=== PATIENT | female | born 1970 | race Caucasian/White ===

== ENCOUNTER → 2019-10-15 | Day surgery (SDC) | payer OTHER ==
[2019-10-12 12:26] LABS: BLOOD UREA NITROGEN 10 mg/dL (7-26); BUN/CREATININE RATIO 16 (6-25); CALCIUM 9.8 mg/dL (8.4-10.2); CARBON DIOXIDE 24 mmol/L (22-29); CHLORIDE 104 mmol/L (98-107); CREATININE, SERUM 0.63 mg/dL (0.57-1.11); EST GLOMERULAR FILTRATION RATE > 60 ML/MIN (60-); GLUCOSE 134 mg/dL (74-118); SODIUM 137 mmol/L (136-145)
[~2019-10-15] MED LIST: ACETAMINOPHEN 1000 MG/100 ML IV ONE; AMARYL4 MG PO; ATORVASTATIN CA10 MG PO; BUPIVACAINE HCL 0.5% INJ 30 ML VIAL INJ ONE; CLINDAMYCIN PHOS 900MG/ 50ML 50 ML IV ONE; DESFLURANE 240 ML BTL INH ONE; DEXAMETHASONE SOD PHOS INJ 4 MG/ML VIAL ONE; FENTANYL CITRATE/PF 100MCG/2 ML INJ ONE; GLYCOPYRROLATE INJ 0.2 MG/ML VIAL ONE; KETOROLAC TROMETHAMINE 30 MG/ML VIAL ONE; LIDOCAINE HCL 2% LOCAL INJ 5 ML SDV VIAL INJ ONE; METFORMIN HCL500 MG PO; MIDAZOLAM HCL 2 MG/2 ML VIAL ONE; MULTI-VITAMIN1 EACH PO; NEOSTIGMINE 1 MG/ML 10ML VIAL ONE; NEXIUM PO; ONDANSETRON HCL INJ 2MG/ML 2ML 2 MG/ML VIAL ONE; PROPOFOL IV EMULSION 10 MG/ML 20 ML VIAL ONE; ROCURONIUM BROMIDE 10 MG/ML 5ML VIAL ONE; VICTOZA 2-0.6 MG/0.1 SC
[2019-10-15 09:10] VITALS: BP 125/77
--- NOTE | 2019-10-15 12:30 | Operative Report ---
DATE OF PROCEDURE: 10/15/2019 SURGEON: Maikel Puckett DPM Operative report for Dr. Simms. PREOPERATIVE DIAGNOSIS: Left Achilles tendon rupture. POSTOPERATIVE DIAGNOSIS: Left Achilles tendon rupture. PLANNED PROCEDURE: Left Achilles tendon repair. POWDER LINE REPAIRER: Maikel Puckett DPM ANESTHESIA: General with a postoperative block consisting of 20 mL of 0.5% Marcaine plain. ESTIMATED BLOOD LOSS: Less than 10 mL. MATERIALS: 0 Ethibond, 3-0 Vicryl, 3-0 nylon. PATHOLOGY: None. PROCEDURE NOTE: The patient was seen in the preoperative waiting room where the correct procedure and site were identified. The patient was brought to the operating room where general anesthesia was initiated at this time, and a well-padded pneumatic tourniquet was placed about the patient's left thigh. The left foot, ankle, and leg were then scrubbed, prepped, and draped in the usual aseptic manner. The patient was flipped to the prone position onto the operating table. By utilizing an Esmarch bandage, the left lower extremity was exsanguinated and the left thigh tourniquet was inflated to 350 mmHg for a total time of approximately 40 minutes. Attention was directed to the posterior aspect of the patient's left Achilles tendon insertion site where an 8 cm linear incision made directly over the distal aspect of the Achilles tendon to the level of the insertion. Incision was carried through the subcutaneous tissue them from deep or underlying structures. All vital neurovascular structures were identified, retracted medially and laterally and all bleeders were cauterized or ligated as deemed necessary. At this time, the peritoneum was noted inside. There was noted to be large hematoma formation. The Achilles tendon rupture site was easily identified. There was noted to be moderate spaghetti string appearance of the proximal edge of the rupture site. There was noted to be moderate hematoma formation. The plantaris muscle appeared to be intact. The wound was then copiously irrigated with sterile saline. The wound was debrided of all necrotic and devitalized tissues and spaghetti string attachments were removed. Next, utilizing a Krackow technique, the proximal rupture site was sutured, followed by the distal side in the same Krackow technique and reapproximated by suturing both ends together. Next, simple interrupted sutures were placed directly along the rupture site for further strength. The wound was again copiously irrigated with sterile saline. Capsule, deep tissue and paratenon were reapproximated with 3-0 Vicryl, subcutaneous tissue with 3-0 Vicryl, and the skin was closed using simple interrupted sutures with 3-0 nylon. The incision site was then dressed with Adaptic, 4x4s, Kerlix, Webril, 4 x 30 posterior splint, 4 inch Narendra wrap, and a 6-inch Narendra wrap. The patient tolerated the procedure and anesthesia well. The patient was transferred to the postoperative recovery room with vital signs stable and vascular status intact. The patient was monitored there for a short period time before being sent home with the following written and oral instructions: 1. Keep the dressing clean, dry, and intact. 2. The patient is to remain nonweightbearing to the left lower extremity to avoid any ambulation until being seen in the office. 3. The patient was given the office number and instructed to contact us if any problems arise. LENORA Osuna/SHONDA /[id number]
== END | disposition home or self-care (01) ==
LOC: OR 05:30
PROVIDERS: ATTEND Podiatrist Foot & Ankle Surgery
DX: S86.012A Strain of left Achilles tendon, initial encounter (principal); Z88.2 Allergy status to sulfonamides; Z88.8 Allergy status to other drugs, medicaments and biological substances; E11.9 Type 2 diabetes mellitus without complications; E78.00 Pure hypercholesterolemia, unspecified; Z01.810 Encounter for preprocedural cardiovascular examination; Z01.812 Encounter for preprocedural laboratory examination; Z79.84 Long term (current) use of oral hypoglycemic drugs
CPT/HCPCS: 27650; 36415 ×2; 80048; 82948; 93005; J0131; J1100; J1885; J2001; J2250; J2405; J2704; J2710; J3010

== ENCOUNTER → 2020-04-03 | Outpatient (CLI) | payer OTHER ==
[~2020-04-03] MED LIST changes: -ACETAMINOPHEN 1000 MG/100 ML IV ONE; -BUPIVACAINE HCL 0.5% INJ 30 ML VIAL INJ ONE; -CLINDAMYCIN PHOS 900MG/ 50ML 50 ML IV ONE; -DESFLURANE 240 ML BTL INH ONE; -DEXAMETHASONE SOD PHOS INJ 4 MG/ML VIAL ONE; -FENTANYL CITRATE/PF 100MCG/2 ML INJ ONE; -GLYCOPYRROLATE INJ 0.2 MG/ML VIAL ONE; -KETOROLAC TROMETHAMINE 30 MG/ML VIAL ONE; -LIDOCAINE HCL 2% LOCAL INJ 5 ML SDV VIAL INJ ONE; -MIDAZOLAM HCL 2 MG/2 ML VIAL ONE; -NEOSTIGMINE 1 MG/ML 10ML VIAL ONE; -ONDANSETRON HCL INJ 2MG/ML 2ML 2 MG/ML VIAL ONE; -PROPOFOL IV EMULSION 10 MG/ML 20 ML VIAL ONE; -ROCURONIUM BROMIDE 10 MG/ML 5ML VIAL ONE
== END ==
LOC: MAMMO 08:36
PROVIDERS: ATTEND Internal Medicine
DX: Z12.31 Encounter for screening mammogram for malignant neoplasm of breast (principal)
CPT/HCPCS: 77067

== ENCOUNTER → 2022-06-22 | Outpatient (CLI) | payer OTHER | LOC: MAMMO 08:30 | PROVIDERS: ATTEND Obstetrics & Gynecology | DX: Z12.31 Encounter for screening mammogram for malignant neoplasm of breast (principal); M85.88 Other specified disorders of bone density and structure, other site | CPT/HCPCS: 77067; 77080 ==

== ENCOUNTER → 2024-06-22 | Outpatient (REF) | payer OTHER | LOC: MAMMO 07:36 | PROVIDERS: ATTEND Obstetrics & Gynecology | DX: Z12.31 Encounter for screening mammogram for malignant neoplasm of breast (principal) | CPT/HCPCS: 77067 ==